=== PATIENT | female | born 1930 | race Caucasian/White ===

== ENCOUNTER 2016-10-22 06:48 | Emergency (ER) | payer OTHER, BC ==
[~2016-10-22] VITALS: Ht 157.5 cm; Wt 62.1 kg
[~2016-10-22 06:48] MED LIST: ASPIRIN EC81 M1 PO; BENICAR HCT 401 EAC1 PO; CALTRATE-600 W1 EACH PO; CLARINEX5 MG PO; GLUCOSAMINE1000 MG PO; IBUPROFEN 200200 M1 PO; IRON325 PO; KEFLEX500 MG PO; LIVALO2 MG PO; MAGNESIUM400 MG PO; MUCINEX TA600 MG/TA1 PO; NEURONTIN 400400 M1 PO; NORCO 5-325 TA1 EACH PO; POTASSIUM20 PO; PREDNISONE 20 M20 M1 PO; PREMARIN0.625 MG PO; PREVACID15 MG PO; PRILOSEC 20 MG20 MG PO; SUPER B COMPLE1 EAC3 PO
[2016-10-22] MEDS ORDERED: BUTALB-APAP-CA1 EACH PO (09:04)
[2016-10-22 09:17] VITALS: BP 130/74
== END 2016-10-22 09:17 | disposition home or self-care (01) ==
LOC: ER 06:48
DX: I10 Essential (primary) hypertension (principal); Z90.710 Acquired absence of both cervix and uterus; Z90.49 Acquired absence of other specified parts of digestive tract; Z98.890 Other specified postprocedural states; Z96.652 Presence of left artificial knee joint; I48.91 Unspecified atrial fibrillation; Z88.0 Allergy status to penicillin

== ENCOUNTER 2017-02-26 09:02 | Emergency (ER) | payer OTHER, BC ==
[~2017-02-26] VITALS: Ht 149.9 cm; Wt 59.9 kg
[~2017-02-26 09:02] MED LIST changes: +BUTALB-APAP-CA1 EACH PO
[2017-02-26 09:10] VITALS: BP 136/67
== END 2017-02-26 09:54 | disposition home or self-care (01) ==
LOC: ER 09:02
DX: Z76.0 Encounter for issue of repeat prescription (principal); I10 Essential (primary) hypertension; I48.91 Unspecified atrial fibrillation; J44.9 Chronic obstructive pulmonary disease, unspecified; Z96.652 Presence of left artificial knee joint; Z90.710 Acquired absence of both cervix and uterus; Z88.0 Allergy status to penicillin

== ENCOUNTER 2017-04-05 13:56 | Emergency (ER) | payer OTHER, BC ==
[~2017-04-05] VITALS: Ht 149.9 cm; Wt 59.9 kg
[2017-04-05 15:30] VITALS: BP 133/67
== END 2017-04-05 15:32 | disposition home or self-care (01) ==
LOC: ER 13:56
DX: S92.501A Displaced unspecified fracture of right lesser toe(s), initial encounter for closed fracture (principal); I10 Essential (primary) hypertension; J44.9 Chronic obstructive pulmonary disease, unspecified; I48.91 Unspecified atrial fibrillation; E11.9 Type 2 diabetes mellitus without complications; Z90.710 Acquired absence of both cervix and uterus; Z98.890 Other specified postprocedural states; Z96.652 Presence of left artificial knee joint; W22.8XXA Striking against or struck by other objects, initial encounter; Y93.89 Activity, other specified; Y92.008 Other place in unspecified non-institutional (private) residence as the place of occurrence of the external cause; Y99.8 Other external cause status

== ENCOUNTER → 2017-05-21 | Outpatient (CLI) | payer OTHER, BC | LOC: RAD 14:02 | DX: Z12.31 Encounter for screening mammogram for malignant neoplasm of breast (principal) ==

== ENCOUNTER 2017-07-20 09:13 | Emergency (ER) | payer OTHER, BC ==
[~2017-07-20] VITALS: Ht 157.5 cm; Wt 68.0 kg
--- NOTE | ~2017-07-20 | EKG ---
[place] [address] [facility] [place] [address] ELECTROCARDIOGRAM REPORT Name: SHERRY NEELY [facility] [id number] Admission: 07/20/17 Attend Phys: Discharge: Date of : [birth year] Report #: [id number] THIS REPORT FOR: //name// [facility] ED Test Date: 2017-07-20 Test Time: 09:37:34 Pat Name: SHERRY NEELY Department: Room: Gender: F Office Clin Asst: Pamella : 1930 Requested By: Fritz Serra Order Number: [id number] MD: Pavan Morris Measurements Intervals [place] Rate: 120 P: NC: QRS: -25 QRSD: 100 T: 100 QT: 325 QTc: 460 Interpretive Statements Atrial fibrillation LVH with secondary repolarization abnormality Compared to ECG 01/04/2009 12:58:34 Left ventricular hypertrophy now present Early repolarization now present Sinus rhythm no longer present Electronically Signed On 07-20-2017 11:26:36 [employer] by Pavan Morris [email or web address] <ELECTRONICALLY SIGNED> By: Pavan Morris MD 07/20/17 1126 [id number] Pavan Morris MD /ILEANA
[2017-07-20 09:33] LABS: ABSOLUTE NEUTROPHILS 2.3 thou/uL (1.4-8.2); BASOPHILS 0.8 % (0.0-2.0); HEMATOCRIT 38.2 % (37.0-47.0); HEMOGLOBIN 12.6 gm/dL (12.0-15.0); LYMPHOCYTES 43.3 % (24.0-44.0); MCHC 33.1 g/dL (28.0-37.0); MCV 96.7 fL (80.0-100.0); MONOCYTES 10.7 % (1.0-8.0); PLATELET COUNT 147 thou/uL (150-400); POLYS 41.2 % (36.0-66.0); RBC 3.95 mil/uL (4.20-5.00); RDW 13.7 % (10.5-14.5); WBC 5.6 thou/uL (4.0-11.0)
[2017-07-20 09:43] LABS: ANION GAP 10 mmol/L (7-16); BUN 34 mg/dL (7-18); CALCIUM 10.1 mg/dL (8.5-10.1); CHLORIDE 105 mmol/L (98-107); CO2 27 mmol/L (21-32); CREATININE 1.2 mg/dL (0.6-1.0); GLUCOSE 100 mg/dL (74-106); POTASSIUM 3.8 mmol/L (3.5-5.1); SODIUM 142 mmol/L (136-145)
[2017-07-20 09:51] LABS: TROPONIN-I < 0.04 ng/mL (<0.06)
[2017-07-20] MEDS ORDERED: CARDIZEM CD120 MG PO (10:09)
[2017-07-20] MEDS ORDERED: COLCHICINE0.6 MG PO (10:09)
[2017-07-20] MEDS ORDERED: ADVAIR 250-501 EACH INH (10:09)
[2017-07-20] MEDS ORDERED: CLONIDINE HCL0.1 MG PO (10:09)
[2017-07-20] MEDS ORDERED: CARDIZEM CD240 MG PO (10:42)
== END 2017-07-20 13:30 | disposition home or self-care (01) ==
LOC: ER 09:13
PROVIDERS: Emergency Medicine
DX: I48.91 Unspecified atrial fibrillation (principal); I10 Essential (primary) hypertension; Z90.710 Acquired absence of both cervix and uterus; Z96.652 Presence of left artificial knee joint; J44.9 Chronic obstructive pulmonary disease, unspecified

== ENCOUNTER 2017-11-13 11:02 | Emergency (ER) | payer OTHER, BC ==
[~2017-11-13] VITALS: Ht 149.9 cm; Wt 59.0 kg
[~2017-11-13 11:02] MED LIST changes: +ADVAIR 250-501 EACH INH; +CARDIZEM CD120 MG PO; +CARDIZEM CD240 MG PO; +CLONIDINE HCL0.1 MG PO; +COLCHICINE0.6 MG PO
[2017-11-13 12:34] VITALS: BP 156/77
== END 2017-11-13 12:35 | disposition home or self-care (01) ==
LOC: ER 11:02
DX: M25.531 Pain in right wrist (principal); I48.91 Unspecified atrial fibrillation; I10 Essential (primary) hypertension; J44.9 Chronic obstructive pulmonary disease, unspecified; Z96.652 Presence of left artificial knee joint; Z90.710 Acquired absence of both cervix and uterus